=== PATIENT | male | born 1970 | race Caucasian/White ===

== ENCOUNTER 2024-02-11 17:23 | Emergency (ER) | payer BC, OTHER ==
[~2024-02-11] VITALS: Ht 175.3 cm; Wt 89.5 kg
[2024-02-11 18:27] VITALS: BP 145/83; TEMP 98.3
[2024-02-11 18:29] VITALS: PULSE 71; RESP 16; O2SAT 98
[2024-02-11] MEDS: TETANUS-DIPTH-ACEL PERTUSSIS 0.5ML SYR Tdap IM ONE (19:18)
== END 2024-02-11 19:57 | disposition home or self-care (01) ==
LOC: ER 17:23
DX: S61.214A Laceration without foreign body of right ring finger without damage to nail, initial encounter (principal); W18.09XA Striking against other object with subsequent fall, initial encounter; Y93.89 Activity, other specified; Y92.89 Other specified places as the place of occurrence of the external cause; Y99.8 Other external cause status
CPT/HCPCS: 12001; 73140; 90471; 90715